=== PATIENT | male | born 1960 | race African-American/Black ===

== ENCOUNTER 2020-08-10 04:08 | Day surgery (SDC) | payer OTHER ==
[2020-08-08 14:26] VITALS: BMI 26.2
[2020-08-10 10:40] VITALS: BP 146/87; PULSE 89; TEMP 98.9
[2020-08-10 11:22] LABS: INR 2.06 (0.83-1.09); PROTHROMBIN TIME (PATIENT) 24.4 SEC (9.7-13.0)
== END 2020-08-10 12:00 | disposition home or self-care (01) ==
LOC: JASU-SURG 04:08
PROVIDERS: ATTEND Urology
DX: Z53.8 Procedure and treatment not carried out for other reasons (principal)
CPT/HCPCS: 36415; 85610

== ENCOUNTER 2020-08-16 04:37 | Day surgery (SDC) | payer OTHER ==
[2020-08-13 16:58] VITALS: BMI 26.2
[2020-08-16 11:39] LABS: INR 1.07 (0.83-1.09); PROTHROMBIN TIME (PATIENT) 12.9 SEC (9.7-13.0)
[2020-08-16 11:42] LABS: ACTIVATED PTT 25.5 SECONDS (25.2-36.5)
[2020-08-16] MEDS ORDERED: ceFAZolin 2 GRAM PREMIX BAG IVPB ONE (13:45)
[2020-08-16] MEDS ORDERED: oxyCODONE HCL 5 MG TABLET PO PRN ×2 (14:49)
[2020-08-16] MEDS ORDERED: ONDANSETRON 4 MG/2 ML VIAL IVPUSH PRN (14:49)
[2020-08-16] MEDS ORDERED: LACTATED RINGERS SOLUTION 1,000 ML IV SCH (15:00)
[2020-08-16 18:02] VITALS: BP 146/89; PULSE 74; TEMP 98.2
== END 2020-08-16 17:50 | disposition home or self-care (01) ==
LOC: JASU-SURG 04:37
PROVIDERS: ATTEND Urology
PROC: 0V503ZZ Destruction of Prostate, Percutaneous Approach (ICD-10-PCS; principal; 2020-08-16 13:00)
DX: C61 Malignant neoplasm of prostate (principal); Z53.8 Procedure and treatment not carried out for other reasons
CPT/HCPCS: 55873; C2618; 36415; 85610; 85730; 94760